=== PATIENT | female | born 1955 | race Caucasian/White ===

== ENCOUNTER → 2021-06-27 13:24 | Outpatient (RCR) | payer MEDICARE, SELFPAY ==
[2019-12-24 07:50] VITALS: BP 140/88; PULSE 75; O2SAT 97
--- NOTE | 2020-01-24 16:27 | MHC.PT.DC ---
[facility] [place] Office [place] Office [place] Office [address] Nayely Reyes [address] [phone] F: [phone] F: [phone] F: [phone] F: [phone] Physical Therapy Discharge Report Diagnosis: This is a 63 yo female presenting to skilled PT with a script for vertigo. Date of Surgery: NA Date of Evaluation: 12/24/19 Date of Discharge: 01/24/20 Treatments to Date: 1 Cancellations to Date: 0 No Shows to Date: 0 Discharge Status: Achieved Goals Improved Function Discharge Summary: This is a 63 yo female presenting to skilled PT with a script for vertigo. Her symptoms began about a week ago. Symptoms are described as swirling. Her symptoms last for a few seconds. She has had vertigo twice before in the past and had PT which was helpful and resolved the symptoms. She has attempted exercises at home recently that she tried to remember from the past PT and they helped a little but symptoms are still present. Examination demonstrated (+) for dizziness and nystagmus for BPPV with R hallpike. I held balance testing and assessment of the other canals to prevent increased symptoms at the moment. She would benefit from reassessment of PT. Educated patient on causes of dizziness, balance systems and vestibular anatomy with radiocommunications technician. She is a good candidate for skilled PT 2x/wk for 5wks however patient called and felt better with single tx. Kept chart open for 30 days and then DC. Electronically signed by: Sobeida Rich PT Please sign and return to therapist. Thank you for your referral.
== END | disposition home or self-care (01) ==
LOC: HO.PTCHIC 12-24 07:48
PROVIDERS: PCP Internal Medicine; Visit Provider Otolaryngology
DX: R42 Dizziness and giddiness (principal)
CPT/HCPCS: 97161; 97530

== ENCOUNTER 2024-07-16 08:54 | Outpatient (AMB) | payer MEDICARE, OTHER, SELFPAY ==
--- OUTSIDE RECORDS SUMMARY | 2024-07-16 08:58 | XMS_ITS | Patient Health Record ---
Author Organization [facility] Address [address] [place] [id number] Care Team Providers Care Audience Development Manager Name Role Phone FERNANDO JOYA Primary Care Provider [phone] AIMEE MCCANN Unavailable [phone] Allergies No Known Allergies Results Component Value Reference Range Notes MR CERVICAL SPINE WO CONTRAS T Reviewed date:07/09/2024 10:18:25 AM Interpretation: Performing Lab: Notes/Report: Note See Note [facility], a member of [employer] Patient Name: YOU MARMOLEJO Date of : 1955 Reason for Exam: NECK PAIN CERVICALGIA Exam Date: 07/02/2024 [id number] EST Report Status: Final Ordering Provider: AIMEE MCCANN PCP: FERNANDO JOYA PROCEDURE: MRI of th e cervical spine without intravenous contrast. TECHNIQUE: Sagittal and axial multisequence MRI of the cervical spine without intravenous contrast administration. HISTORY: NECK PAIN CERVICALGIA COMPARISON: 05/17/2020. FINDINGS: Visualized portions of the brain are normal. There is a moderate mucous retention cyst along the floor of the left maxillary antrum. There are 2 right thyroid nodules; the thyroid could be better evaluated with ultrasound. Paraspinous soft tissues are otherwise unremarkable. Anterior fusion hardware C5-C7. No suspicious marrow infiltrative lesion. The cervical cord is normal in caliber and signal. Cervical disc levels: C2-3: Mild endplate irregularity. Minimal bilateral uncovertebral spurring. Severe left and moderate right facet arthropathy. Mild posterior ligamentous hypertrophy. No significant spinal or foraminal stenosis. C3-4: Mild endplate irregularity. Small anterior endplate osteophytes. Small bilateral uncovertebral spurs and a small symmetric disc bulge. Moderate bilateral facet arthropathy. No significant spinal stenosis. Mild left foraminal stenosis. C4-5: Mild endplate irregularity. Small anterior endplate osteophytes. Small left and moderate right uncovertebral spurs and a small symmetric disc osteophyte complex. Moderate right greater than left facet arthropathy. No significant spinal stenosis. Severe right and mild left foraminal stenosis. C5-6: Fusion level. Small bilateral uncovertebral spurs. Mild degenerative irregularity of the facet joints. No spinal stenosis. Mild bilateral foraminal stenosis. C6-7: Fusion level. Small bilateral uncovertebral spurs and a small irregular symmetric disc osteophyte complex which slightly indents the cord. Mild degenerative irregularity of the facet joints. No significant spinal stenosis. Mild left and moderate-severe right foraminal stenosis. C7-T1: Mild endplate irregularity. Mild-moderate left and mild right facet arthropathy. No significant spinal or foraminal stenosis. IMPRESSION: 1. C5-C7 anterior fusion. 2. Multilevel degenerative changes as detailed above. -------- FINAL REPOR T -------- Dictated By: Israel Aguiar Dictated Date: 07/02/2024 10:08 ET Assigned Physician: Israel Sanchez Reviewed and Electronically Signed By: Israel Sanchez Signed Date: 025 10:14 ET Workstation ID: [id number] Transcribed By: Self Edit Transcribed Date: 07/02/2024 10:08 ET URINALYSIS WITH REFLEX MICRO SCOPIC Reviewed date:06/17/2024 12:33:23 PM Interpretation: Performing Lab: Notes/Report: Specific [place] Urine 1.019 1.003-1.030 pH, Urine 5.5 5.0-8.0 pH Leukocytes, Urine Negative Negative Nitrite, Urine Negative Negative Protein, Urine Negative <=Trace mg/dL Glucose, Urine Negative Negative mg/dL Ketones, Urine Trace Negative mg/dL Urobilinogen, Urine 0.2 0.2-1.0 mg/dL Bilirubin, Urine Negative Negative Blood, Urine Negative Negative HEMOGLOBIN A1C Reviewed date:06/22/2024 08:55:44 AM Interpretation: Performing Lab: Notes/Report: Hemoglobin A1C 4.7 <6.5 % Mean Bld Glu Estim. 88 COMPREHENSIVE METABOLIC PANE L Reviewed date:06/17/2024 12:33:23 PM Interpretation: Performing Lab: Notes/Report: Sodium 140 133-145 mmol/L Potassium 3.4 3.5-5.5 mmol/L Chloride 105 96-110 mmol/L CO2 30 21-32 mmol/L Anion Gap 5 3-11 Glucose 83 70-100 mg/dL BUN 8 5-25 mg/dL Creatinine 0.80 0.50-1.10 mg/dL eGFR 80 >=60 mL/min/1.73m2 Calculati on based on the Chronic Kidney Disease Epidemiology Collaboration (CKD-EPI) equation refit without adjustment for race. BUN/Creatinine Ratio 10.0 Calcium 8.6 8.5-10.5 mg/dL AST (SGOT) 10 10-42 unit/L ALT (SGPT) 12 10-60 unit/L Alkaline Phosphatase 41 42-121 unit/L Total Protein 6.4 6.0-8.0 g/dL Albumin 3.7 3.2-5.0 g/dL Total Bilirubin 0.4 0.0-1.4 mg/dL THYROID STIMULATING HORMONE Reviewed date:06/22/2024 08:55:44 AM Interpretation: Performing Lab: Notes/Report: TSH 3.46 0.40-4.00 mcIU/mL VITAMIN D 25 HYDROXY Reviewed date:06/22/2024 08:55:44 AM Interpretation: Performing Lab: Notes/Report: Vit D, 25-Hydroxy 30.1 30.0-80.0 ng/mL LIPID PANEL WITH REFLEX TO D IRECT LDL Reviewed date:06/17/2024 12:33:23 PM Interpretation: Performing Lab: Notes/Report: Cholesterol 215 0-200 mg/dL Triglycerides 96 0-150 mg/dL HDL 97 >=40 mg/dL LDL Calculated 99 0-100 mg/dL VLDL Cholesterol Ty 19.2 Non HDL Chol. (LDL+VLDL) 118 <145 mg/dL Chol/HDL Ratio 2.2 0.0-4.4 CBC WITH AUTO DIFFERENTIAL Reviewed date:06/17/2024 12:33:23 PM Interpretation: Performing Lab: Notes/Report: WBC 4.7 4.8-10.8 K/mcL RBC 3.90 3.80-4.80 M/mcL Hemoglobin 12.4 11.5-16.0 g/dL Hematocrit 38.2 35.0-47.0 % MCV 99.2 79.0-98.0 FL MCH 32.2 27.0-32.0 pcg MCHC 32.5 32.0-37.0 g/dL RDW 13.1 11.0-15.0 % Platelets 199 130-400 K/mcL MPV 10.4 7.0-11.0 FL NRBC 0.0 <1.0 % NRBC Absolute 0.00 <0.10 K/mcL Neutrophils Relative 51.3 Lymphocytes Relative 32.8 Monocytes Relative 13.2 Eosinophils Relative 1.9 Basophils Relative 0.6 Immature Granulocytes Relative 0.2 Neutrophils Absolute 2.40 1.50-7.00 K/mcL Lymphocytes Absolute 1.54 1.00-5.00 K/mcL Monocytes Absolute 0.62 0.20-1.00 K/mcL Eosinophils Absolute 0.09 0.00-0.50 K/mcL Basophils Absolute 0.03 0.00-0.20 K/mcL Immature Granulocytes Absolute 0.01 0.00-0.03 K/mcL Reason For Referral Diagnosis 1 Cervicalgia (M54.2) Referral Organization [facility] [address] Referring Provider First Name AIMEE Referring Provider Last Name KAROErvin Referring Provider Speciality Internal M edicine Referred Provider Specialty Neurosurgery General Notes faxed to Dr. connor office at fax # [phone] Referral Priority Routine Medications Medication SIG (Take, Route, Frequency, Duration) Notes Start Date End Date Status Zepbound 5 MG/0.5ML 5mg Subcutaneous once a week for 30 days 04/21/2024 Active Ondansetron 4 MG DISSOLVE ONE TABLET ON TONGUE TWICE A DAY NEEDED FOR NAUSEA AND VOMITING for 15 Active Estradiol 1 MG 3 tablet Orally Once a day for 30 day(s) Active oxyCODONE HCl 5 MG 1 tablet as needed Orally daily for 30 days Partial fill upon patient request 06/21/2024 Active Zepbound 5 MG/0.5ML 0.5 mL Subcutaneous once a week for 30 days 04/23/2024 Active sulfaSALAzine 500 MG 1 tablet Orally every 6 hrs for 30 day(s) Active Mounjaro 2.5 MG/0.5ML 2.5mg Subcutaneous weekly for 30 days Not-Taking Nystatin 747427 UNIT 1 tablet Orally every 8 hrs for 10 day(s) Active Mounjaro 5 MG/0.5ML INJECT 5MG (0.5ML) UNDER THE SKIN ONCE WEEKLY for 28 Not-Taking FLUoxetine HCl 20 MG 1 tablet Orally Once a day for 90 days Active Hydroxychloroquine Sulfate 200 MG 1 tablet with food or milk Orally Once a day for 10 day(s) Active FLUoxetine HCl 40 MG 1 capsule Orally Once a day for 90 days 12/19/2023 Active Folic Acid 1 MG TAKE ONE TABLET BY MOUTH EVERY DAY for 90 Active LORazepam 0.5 MG 1 tablet, prn breakthrough anxiety Orally twice a day for 15 days 06/24/2024 Active Immunizations Vaccine Route Administration Date Status Comme nts Influenza, high dose seasonal IM Intramuscular 11/22/2018 Administered Social History Tobacco Use: Social History Observation Description Date Details (start date - stop date) Former Smoker NA - NA Tobacco Use/Smoking Question Answer Notes Are you a former smoker Section Notes: Drinks about 2 drinks 3 time s per week Drinks about 2 drinks 3 time s per week Drinks about 2 drinks 3 time s per week Drinks about 2 drinks 3 time s per week Drinks about 2 drinks 3 time s per week Drinks about 2 drinks 3 time s per week Drinks about 2 drinks 3 time s per week Drinks about 2 drinks 3 time s per week Drinks about 2 drinks 3 time s per week Drinks about 2 drinks 3 time s per week Drinks about 2 drinks 3 time s per week Drinks about 2 drinks 3 time s per week Drinks about 2 drinks 3 time s per week Drinks about 2 drinks 3 time s per week Drinks about 2 drinks 3 time s per week Problems Problem Type SNOMED Code ICD Code Onset Dates Problem Status W/U Status Risk Notes Problem Moderate recurrent major depression (76877445) Major depressive disorder, recurrent, moderate (F33.1) Active confirmed Problem Chronic pain syndrome (949493409) Chronic pain syndrome (G89.4) Active confirmed Problem Rheumatoid arthritis (74847957) Rheumatoid arthritis without rheumatoid factor, vertebrae (M06.08) Active confirmed Problem Osteoarthritis (239408151) Unspecified osteoarthritis, unspecified site (M19.90) Active confirmed Problem 14475187 Cervicalgia (M54.2) Active confirmed Problem Lipid screening (979999618) Encounter for screening for lipoid disorders (Z13.220) Active confirmed Problem Hyperlipidaemia (46296939) Hyperlipidemia, unspecified hyperlipidemia type (E78.5) Active confirmed Problem Adult health examination (353833839) Adult general medical exam (Z00.00) Active confirmed Problem 297735996 Abnormal mammogram (R92.8) Active confirmed Problem Hypothyroidism (44883812) Hypothyroidism, unspecified type (E03.9) Active confirmed Problem Vitamin D deficiency (27692477) Vitamin D deficiency (E55.9) Active confirmed Problem Diabetes mellitus screening (681605931) Diabetes mellitus screening (Z13.1) Active confirmed Problem 741963015 Obesity (BMI 30-39.9) (E66.9) Active confirmed Problem 920129630 BMI 33.0-33.9,adult (Z68.33) Active confirmed Problem 79245226223804540 Left breast ma ss (N63.20) Active confirmed Problem Overweight (659983465) Overweight (BMI 25.0-29.9) (E66.3) Active confirmed Problem Avitaminosis D (55613312) Avitaminosis D (E55.9) Active confirmed Problem Rheumatoid arthritis (16882755) 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) Active confirmed Problem Endocrine/metabolic screening (452748029) Encounter for screening for endocrine disorder (Z13.29) Active confirmed Problem 950687063 Cervical spine pain (M54.2) Active confirmed Vital Signs Heart Rate 68 /min 06/24/2024 Oximetry 97 % 06/24/2024 Blood pressure diastolic 88 mm Hg 06/24/2024 Height 65 in 06/24/2024 Blood pressure systolic 132 mm Hg 06/24/2024 Weight 153 lbs 06/24/2024 BMI 25.46 kg/m2 06/24/2024 Encounters Encounter Location Date Provider Diagnosis [facility] [address] [address] 09/11/2023 AIMEE MCCANN Annual physical exam Z00.00 ; Encounter for screening for other disorder Z13.89 ; Encounter for screening for depression Z13.31 ; Chronic pain syndrome G89.4 ; Rheumatoid arthritis without rheumatoid factor, vertebrae M06.08 ; Major depressive disorder, recurrent, moderate F33.1 ; Seronegative arthropathy of multiple sites M06.09 ; Overweight (BMI 25.0-29.9) E66.3 and BMI 26.0-26.9,adult Z68.26 [facility] [address] [facility] [address] [place], [place] 12/19/2023 AIMEE BORHOT Chronic pain syndrom e G89.4 ; Rheumatoid arthritis without rheumatoid factor, vertebrae M06.08 ; Major depressive disorder, recurrent, moderate F33.1 ; Seronegative arthropathy of multiple sites M06.09 ; Overweight (BMI 25.0-29.9) E66.3 and BMI 26.0-26.9,adult Z68.26 [facility] [address] 03/26/2024 AIMEE BORHOT Chronic pain syndrom e G89.4 ; Rheumatoid arthritis without rheumatoid factor, vertebrae M06.08 ; Major depressive disorder, recurrent, moderate F33.1 ; Hyperlipidemia, unspecified hyperlipidemia type E78.5 and Seronegative arthropathy of multiple sites M06.09 [facility] [address] 06/24/2024 AIMEE BORHOT Chronic pain syndrom e G89.4 ; Rheumatoid arthritis without rheumatoid factor, vertebrae M06.08 ; Major depressive disorder, recurrent, moderate F33.1 ; Hyperlipidemia, unspecified hyperlipidemia type E78.5 ; Seronegative arthropathy of multiple sites M06.09 and Cervicalgia M54.2 [facility] [address] 08/11/2023 AIMEE BORHOT Chronic pain syndrom e G89.4 [facility] [address] 09/04/2023 AIMEE BORHOT Chronic pain syndrom e G89.4 [facility] [address] 09/09/2023 AIMEE BORHOT Chronic pain syndrom e G89.4 and Chronic pain syndrome G89.4 [facility] [address] 10/09/2023 AIMEE BORHOT Chronic pain syndrom e G89.4 [facility] [address] 10/31/2023 AIMEE BORHOT [facility] [address] 11/10/2023 AIMEE BORHOT Chronic pain syndrom e G89.4 [facility] [address] [facility] [address] [address] 12/09/2023 AIMEE BORHOT Chronic pain syndrom e G89.4 [facility] [address] [address] 01/08/2024 AIMEE BORHOT Chronic pain syndrom e G89.4 [facility] [address] [address] 01/16/2024 TALAL JOYA [facility] [address] 01/22/2024 AIMEE BORHOT Chronic pain syndrom e G89.4 [facility] [address] 02/16/2024 AIMEE BORHOT Chronic pain syndrom e G89.4 [facility] [address] 03/17/2024 AIMEE BORHOT Chronic pain syndrom e G89.4 [facility] [address] 03/17/[address] [facility] [address] [place] [address] 03/30/2024 TALAL JOYA [facility] [address] [place], [place] 04/09/2024 TALAL JOYA [facility] [address] 04/13/2024 AIMEE BORHOT [facility] [address] [place] [address] 04/20/2024 AIMEE BORHOT Chronic pain syndrom e G89.[address] [facility] [address] [place] [address] 04/21/2024 AIMEE BORHOT [facility] [address] [place] [address] 04/23/2024 AIMEE BORHOT [facility] [address] [address] 04/26/2024 AIMEE BORHOT [facility] [address] [address] 05/21/2024 AIMEE BORHOT Chronic pain syndrom e G89.4 [facility] [address] [facility] [address] [place] [address] 06/08/2024 AIMEE MCCANN [facility] [address] [facility] [address] [place] [address] 06/10/2024 AIMEE MCCANN [facility] [address] [facility] [address] [place] [address] 06/21/2024 AIMEE MCCANN Chronic pain syndrom e G89.4 [facility] [address] [facility] [address] [place] [address] 06/24/2024 FERNANDO JOYA [facility] [address] [place] [address] 07/02/2024 AIMEE MCCANN [facility] [address] [place] [address] 07/05/2024 AIMEE MCCANN Assessments Encounter Date Diagnosis (ICD Code) Assessment Notes Treatment Notes Treatment Clinical Notes Section Notes 08/11/2023 Chronic pain syndrome (ICD-10 - G89.4) 09/04/2023 Chronic pain syndrome (ICD-10 - G89.4) 09/09/2023 Chronic pain syndrome (ICD-10 - G89.4) 09/09/2023 Chronic pain syndrome (ICD-10 - G89.4) 09/11/2023 Encounter for screening for other disorder (ICD-10 - Z13.89) Acute Concerns/Problem List: 09/11/2023 [facility] reviewed. 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 at 550 bucks per month or Contrave Of note, some information is being carried forward from prior records for informational purposes only and is being cited so that efficiency, safety and quality of the patient's care is not compromised This note was prepared using voice recognition software and direct typing Please excuse inadvertent market research coordinator or typing errors, or uncorrected word substitutions Although every attempt has been made by the provider to proofread this document, occasional misspellings and typographical errors may still be present Due to the previous pandemic, and the use of personal protective equipment (PPE) This may decrease voice recognition accuracy Inadvertent market research coordinator errors may occur 09/11/2023 Annual physical exam (ICD-10 - Z00.00) Acute Concerns/Problem List: 09/11/2023 [facility] reviewed. 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 at 550 bucks per month or Contrave Of note, some information is being carried forward from prior records for informational purposes only and is being cited so that efficiency, safety and quality of the patient's care is not compromised This note was prepared using voice recognition software and direct typing Please excuse inadvertent market research coordinator or typing errors, or uncorrected word substitutions Although every attempt has been made by the provider to proofread this document, occasional misspellings and typographical errors may still be present Due to the previous pandemic, and the use of personal protective equipment (PPE) This may decrease voice recognition accuracy Inadvertent market research coordinator errors may occur 10/09/2023 Chronic pain syndrome (ICD-10 - G89.4) 11/10/2023 Chronic pain syndrome (ICD-10 - G89.4) 12/09/2023 Chronic pain syndrome (ICD-10 - G89.4) 12/19/2023 Chronic pain syndrome (ICD-10 - G89.4) Acute Concerns/Problem List: 12/19/2023 _update labs Thriving on dual incretin therapy I have suggested increasing her fluoxetine from 20 to 40 mg I will also add on a low-dose anxiolytic To help her in grieving process Of note, some information is being carried forward from prior records for informational purposes only and is being cited so that efficiency, safety and quality of the patient's care is not compromised This note was prepared using voice recognition software and direct typing Please excuse inadvertent market research coordinator or typing errors, or uncorrected word substitutions Although every attempt has been made by the provider to proofread this document, occasional misspellings and typographical errors may still be present Due to the previous pandemic, and the use of personal protective equipment (PPE) This may decrease voice recognition accuracy Inadvertent market research coordinator errors may occur 01/08/2024 Chronic pain syndrome (ICD-10 - G89.4) 01/22/2024 Chronic pain syndrome (ICD-10 - G89.4) 02/16/2024 Chronic pain syndrome (ICD-10 - G89.4) 03/17/2024 Chronic pain syndrome (ICD-10 - G89.4) 03/26/2024 Chronic pain syndrome (ICD-10 - G89.4) Update labs please Continue fluoxetine 40 mg Continue lorazepam as needed Will see her back in 3 months Of note, some information is being carried forward from prior records for informational purposes only and is being cited so that efficiency, safety and quality of the patient's care is not compromised This note was prepared using voice recognition software and direct typing Please excuse inadvertent market research coordinator or typing errors, or uncorrected word substitutions Although every attempt has been made by the provider to proofread this document, occasional misspellings and typographical errors may still be present Due to the previous pandemic, and the use of personal protective equipment (PPE) This may decrease voice recognition accuracy Inadvertent market research coordinator errors may occur 03/26/2024 Rheumatoid arthritis without rheumatoid factor, vertebrae (ICD-10 - M06.08) Update labs please Continue fluoxetine 40 mg Continue lorazepam as needed Will see her back in 3 months Of note, some information is being carried forward from prior records for informational purposes only and is being cited so that efficiency, safety and quality of the patient's care is not compromised This note was prepared using voice recognition software and direct typing Please excuse inadvertent market research coordinator or typing errors, or uncorrected word substitutions Although every attempt has been made by the provider to proofread this document, occasional misspellings and typographical errors may still be present Due to the previous pandemic, and the use of personal protective equipment (PPE) This may decrease voice recognition accuracy Inadvertent market research coordinator errors may occur 04/20/2024 Chronic pain syndrome (ICD-10 - G89.4) 05/21/2024 Chronic pain syndrome (ICD-10 - G89.4) 06/21/2024 Chronic pain syndrome (ICD-10 - G89.4) 06/24/2024 Chronic pain syndrome (ICD-10 - G89.4) Acute Concerns/Problem List: 06/24/2024 Labs reviewed MRI cervical spine without, To follow-up with neurosurgery at [facility], Dr. Guthrie She needs a weight management follow-up visit and body composition scan we will schedule this Continue fluoxetine 40 mg Continue lorazepam as needed Of note, some information is being carried forward from prior records for informational purposes only and is being cited so that efficiency, safety and quality of the patient's care is not compromised This note was prepared using voice recognition software and direct typing Please excuse inadvertent market research coordinator or typing errors, or uncorrected word substitutions Although every attempt has been made by the provider to proofread this document, occasional misspellings and typographical errors may still be present Due to the previous pandemic, and the use of personal protective equipment (PPE) This may decrease voice recognition accuracy Inadvertent market research coordinator errors may occur 06/24/2024 Rheumatoid arthritis without rheumatoid factor, vertebrae (ICD-10 - M06.08) Acute Concerns/Problem List: 06/24/2024 Labs reviewed MRI cervical spine without, To follow-up with neurosurgery at Dr. Cleveland Baca She needs a weight management follow-up visit and body composition scan we will schedule this Continue fluoxetine 40 mg Continue lorazepam as needed Of note, some information is being carried forward from prior records for informational purposes only and is being cited so that efficiency, safety and quality of the patient's care is not compromised This note was prepared using voice recognition software and direct typing Please excuse inadvertent market research coordinator or typing errors, or uncorrected word substitutions Although every attempt has been made by the provider to proofread this document, occasional misspellings and typographical errors may still be present Due to the previous pandemic, and the use of personal protective equipment (PPE) This may decrease voice recognition accuracy Inadvertent market research coordinator errors may occur 06/24/2024 Major depressive disorder, recurrent, moderate (ICD-10 - F33.1) Acute Concerns/Problem List: 06/24/2024 Labs reviewed MRI cervical spine without, To follow-up with neurosurgery at Dr. Cleveland Baca She needs a weight management follow-up visit and body composition scan we will schedule this Continue fluoxetine 40 mg Continue lorazepam as needed Of note, some information is being carried forward from prior records for informational purposes only and is being cited so that efficiency, safety and quality of the patient's care is not compromised This note was prepared using voice recognition software and direct typing Please excuse inadvertent market research coordinator or typing errors, or uncorrected word substitutions Although every attempt has been made by the provider to proofread this document, occasional misspellings and typographical errors may still be present Due to the previous pandemic, and the use of personal protective equipment (PPE) This may decrease voice recognition accuracy Inadvertent market research coordinator errors may occur 03/26/2024 Major depressive disorder, recurrent, moderate (ICD-10 - F33.1) Update labs please Continue fluoxetine 40 mg Continue lorazepam as needed Will see her back in 3 months Of note, some information is being carried forward from prior records for informational purposes only and is being cited so that efficiency, safety and quality of the patient's care is not compromised This note was prepared using voice recognition software and direct typing Please excuse inadvertent market research coordinator or typing errors, or uncorrected word substitutions Although every attempt has been made by the provider to proofread this document, occasional misspellings and typographical errors may still be present Due to the previous pandemic, and the use of personal protective equipment (PPE) This may decrease voice recognition accuracy Inadvertent market research coordinator errors may occur 12/19/2023 Rheumatoid arthritis without rheumatoid factor, vertebrae (ICD-10 - M06.08) Acute Concerns/Problem List: 12/19/2023 _update labs Thriving on dual incretin therapy I have suggested increasing her fluoxetine from 20 to 40 mg I will also add on a low-dose anxiolytic To help her in grieving process Of note, some information is being carried forward from prior records for informational purposes only and is being cited so that efficiency, safety and quality of the patient's care is not compromised This note was prepared using voice recognition software and direct typing Please excuse inadvertent market research coordinator or typing errors, or uncorrected word substitutions Although every attempt has been made by the provider to proofread this document, occasional misspellings and typographical errors may still be present Due to the previous pandemic, and the use of personal protective equipment (PPE) This may decrease voice recognition accuracy Inadvertent market research coordinator errors may occur 09/11/2023 Encounter for screening for depression (ICD-10 - Z13.31) Acute Concerns/Problem List: 09/11/2023 [facility] reviewed. 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 at 550 bucks per month or Contrave Of note, some information is being carried forward from prior records for informational purposes only and is being cited so that efficiency, safety and quality of the patient's care is not compromised This note was prepared using voice recognition software and direct typing Please excuse inadvertent market research coordinator or typing errors, or uncorrected word substitutions Although every attempt has been made by the provider to proofread this document, occasional misspellings and typographical errors may still be present Due to the previous pandemic, and the use of personal protective equipment (PPE) This may decrease voice recognition accuracy Inadvertent market research coordinator errors may occur 12/19/2023 Major depressive disorder, recurrent, moderate (ICD-10 - F33.1) Acute Concerns/Problem List: 12/19/2023 _update labs Thriving on dual incretin therapy I have suggested increasing her fluoxetine from 20 to 40 mg I will also add on a low-dose anxiolytic To help her in grieving process Of note, some information is being carried forward from prior records for informational purposes only and is being cited so that efficiency, safety and quality of the patient's care is not compromised This note was prepared using voice recognition software and direct typing Please excuse inadvertent market research coordinator or typing errors, or uncorrected word substitutions Although every attempt has been made by the provider to proofread this document, occasional misspellings and typographical errors may still be present Due to the previous pandemic, and the use of personal protective equipment (PPE) This may decrease voice recognition accuracy Inadvertent market research coordinator errors may occur 09/11/2023 Chronic pain syndrome (ICD-10 - G89.4) Acute Concerns/Problem List: 09/11/2023 [facility] reviewed. 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 at 550 bucks per month or Contrave Of note, some information is being carried forward from prior records for informational purposes only and is being cited so that efficiency, safety and quality of the patient's care is not compromised This note was prepared using voice recognition software and direct typing Please excuse inadvertent market research coordinator or typing errors, or uncorrected word substitutions Although every attempt has been made by the provider to proofread this document, occasional misspellings and typographical errors may still be present Due to the previous pandemic, and the use of personal protective equipment (PPE) This may decrease voice recognition accuracy Inadvertent market research coordinator errors may occur 03/26/2024 Hyperlipidemia, unspecified hyperlipidemia type (ICD-10 - E78.5) Update labs please Continue fluoxetine 40 mg Continue lorazepam as needed Will see her back in 3 months Of note, some information is being carried forward from prior records for informational purposes only and is being cited so that efficiency, safety and quality of the patient's care is not compromised This note was prepared using voice recognition software and direct typing Please excuse inadvertent market research coordinator or typing errors, or uncorrected word substitutions Although every attempt has been made by the provider to proofread this document, occasional misspellings and typographical errors may still be present Due to the previous pandemic, and the use of personal protective equipment (PPE) This may decrease voice recognition accuracy Inadvertent market research coordinator errors may occur 06/24/2024 Hyperlipidemia, unspecified hyperlipidemia type (ICD-10 - E78.5) Acute Concerns/Problem List: 06/24/2024 Labs reviewed MRI cervical spine without, To follow-up with neurosurgery at Dr. Cleveland Baca She needs a weight management follow-up visit and body composition scan we will schedule this Continue fluoxetine 40 mg Continue lorazepam as needed Of note, some information is being carried forward from prior records for informational purposes only and is being cited so that efficiency, safety and quality of the patient's care is not compromised This note was prepared using voice recognition software and direct typing Please excuse inadvertent market research coordinator or typing errors, or uncorrected word substitutions Although every attempt has been made by the provider to proofread this document, occasional misspellings and typographical errors may still be present Due to the previous pandemic, and the use of personal protective equipment (PPE) This may decrease voice recognition accuracy Inadvertent market research coordinator errors may occur 06/24/2024 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 Cleveland Baca She needs a weight management follow-up visit and body composition scan we will schedule this Continue fluoxetine 40 mg Continue lorazepam as needed Of note, some information is being carried forward from prior records for informational purposes only and is being cited so that efficiency, safety and quality of the patient's care is not compromised This note was prepared using voice recognition software and direct typing Please excuse inadvertent market research coordinator or typing errors, or uncorrected word substitutions Although every attempt has been made by the provider to proofread this document, occasional misspellings and typographical errors may still be present Due to the previous pandemic, and the use of personal protective equipment (PPE) This may decrease voice recognition accuracy Inadvertent market research coordinator errors may occur 12/19/2023 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) Acute Concerns/Problem List: 12/19/2023 _update labs Thriving on dual incretin therapy I have suggested increasing her fluoxetine from 20 to 40 mg I will also add on a low-dose anxiolytic To help her in grieving process Of note, some information is being carried forward from prior records for informational purposes only and is being cited so that efficiency, safety and quality of the patient's care is not compromised This note was prepared using voice recognition software and direct typing Please excuse inadvertent market research coordinator or typing errors, or uncorrected word substitutions Although every attempt has been made by the provider to proofread this document, occasional misspellings and typographical errors may still be present Due to the previous pandemic, and the use of personal protective equipment (PPE) This may decrease voice recognition accuracy Inadvertent market research coordinator errors may occur 03/26/2024 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) Update labs please Continue fluoxetine 40 mg Continue lorazepam as needed Will see her back in 3 months Of note, some information is being carried forward from prior records for informational purposes only and is being cited so that efficiency, safety and quality of the patient's care is not compromised This note was prepared using voice recognition software and direct typing Please excuse inadvertent market research coordinator or typing errors, or uncorrected word substitutions Although every attempt has been made by the provider to proofread this document, occasional misspellings and typographical errors may still be present Due to the previous pandemic, and the use of personal protective equipment (PPE) This may decrease voice recognition accuracy Inadvertent market research coordinator errors may occur 09/11/2023 Rheumatoid arthritis without rheumatoid factor, vertebrae (ICD-10 - M06.08) Acute Concerns/Problem List: 09/11/2023 [facility] reviewed. 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 at 550 bucks per month or Contrave Of note, some information is being carried forward from prior records for informational purposes only and is being cited so that efficiency, safety and quality of the patient's care is not compromised This note was prepared using voice recognition software and direct typing Please excuse inadvertent market research coordinator or typing errors, or uncorrected word substitutions Although every attempt has been made by the provider to proofread this document, occasional misspellings and typographical errors may still be present Due to the previous pandemic, and the use of personal protective equipment (PPE) This may decrease voice recognition accuracy Inadvertent market research coordinator errors may occur 09/11/2023 Major depressive disorder, recurrent, moderate (ICD-10 - F33.1) Acute Concerns/Problem List: 09/11/2023 [facility] reviewed. 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 at 550 bucks per month or Contrave Of note, some information is being carried forward from prior records for informational purposes only and is being cited so that efficiency, safety and quality of the patient's care is not compromised This note was prepared using voice recognition software and direct typing Please excuse inadvertent market research coordinator or typing errors, or uncorrected word substitutions Although every attempt has been made by the provider to proofread this document, occasional misspellings and typographical errors may still be present Due to the previous pandemic, and the use of personal protective equipment (PPE) This may decrease voice recognition accuracy Inadvertent market research coordinator errors may occur 06/24/2024 Cervicalgia (ICD-10 - M54.2) Acute Concerns/Problem List: 06/24/2024 Labs reviewed MRI cervical spine without, To follow-up with neurosurgery at [facility], Dr. Guthrie She needs a weight management follow-up visit and body composition scan we will schedule this Continue fluoxetine 40 mg Continue lorazepam as needed Of note, some information is being carried forward from prior records for informational purposes only and is being cited so that efficiency, safety and quality of the patient's care is not compromised This note was prepared using voice recognition software and direct typing Please excuse inadvertent market research coordinator or typing errors, or uncorrected word substitutions Although every attempt has been made by the provider to proofread this document, occasional misspellings and typographical errors may still be present Due to the previous pandemic, and the use of personal protective equipment (PPE) This may decrease voice recognition accuracy Inadvertent market research coordinator errors may occur 12/19/2023 Overweight (BMI 25.0-29.9) (ICD-10 - E66.3) Acute Concerns/Problem List: 12/19/2023 _update labs Thriving on dual incretin therapy I have suggested increasing her fluoxetine from 20 to 40 mg I will also add on a low-dose anxiolytic To help her in grieving process Of note, some information is being carried forward from prior records for informational purposes only and is being cited so that efficiency, safety and quality of the patient's care is not compromised This note was prepared using voice recognition software and direct typing Please excuse inadvertent market research coordinator or typing errors, or uncorrected word substitutions Although every attempt has been made by the provider to proofread this document, occasional misspellings and typographical errors may still be present Due to the previous pandemic, and the use of personal protective equipment (PPE) This may decrease voice recognition accuracy Inadvertent market research coordinator errors may occur 09/11/2023 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) Acute Concerns/Problem List: 09/11/2023 [facility] reviewed. 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 at 550 bucks per month or Contrave Of note, some information is being carried forward from prior records for informational purposes only and is being cited so that efficiency, safety and quality of the patient's care is not compromised This note was prepared using voice recognition software and direct typing Please excuse inadvertent market research coordinator or typing errors, or uncorrected word substitutions Although every attempt has been made by the provider to proofread this document, occasional misspellings and typographical errors may still be present Due to the previous pandemic, and the use of personal protective equipment (PPE) This may decrease voice recognition accuracy Inadvertent market research coordinator errors may occur 12/19/2023 BMI 26.0-26.9,adult (ICD-10 - Z68.26) Acute Concerns/Problem List: 12/19/2023 _update labs Thriving on dual incretin therapy I have suggested increasing her fluoxetine from 20 to 40 mg I will also add on a low-dose anxiolytic To help her in grieving process Of note, some information is being carried forward from prior records for informational purposes only and is being cited so that efficiency, safety and quality of the patient's care is not compromised This note was prepared using voice recognition software and direct typing Please excuse inadvertent market research coordinator or typing errors, or uncorrected word substitutions Although every attempt has been made by the provider to proofread this document, occasional misspellings and typographical errors may still be present Due to the previous pandemic, and the use of personal protective equipment (PPE) This may decrease voice recognition accuracy Inadvertent market research coordinator errors may occur 09/11/2023 Overweight (BMI 25.0-29.9) (ICD-10 - E66.3) Acute Concerns/Problem List: 09/11/2023 [facility] reviewed. 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 at 550 bucks per month or Contrave Of note, some information is being carried forward from prior records for informational purposes only and is being cited so that efficiency, safety and quality of the patient's care is not compromised This note was prepared using voice recognition software and direct typing Please excuse inadvertent market research coordinator or typing errors, or uncorrected word substitutions Although every attempt has been made by the provider to proofread this document, occasional misspellings and typographical errors may still be present Due to the previous pandemic, and the use of personal protective equipment (PPE) This may decrease voice recognition accuracy Inadvertent market research coordinator errors may occur 09/11/2023 BMI 26.0-26.9,adult (ICD-10 - Z68.26) Acute Concerns/Problem List: 09/11/2023 [facility] reviewed. 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 at 550 bucks per month or Contrave Of note, some information is being carried forward from prior records for informational purposes only and is being cited so that efficiency, safety and quality of the patient's care is not compromised This note was prepared using voice recognition software and direct typing Please excuse inadvertent market research coordinator or typing errors, or uncorrected word substitutions Although every attempt has been made by the provider to proofread this document, occasional misspellings and typographical errors may still be present Due to the previous pandemic, and the use of personal protective equipment (PPE) This may decrease voice recognition accuracy Inadvertent market research coordinator errors may occur Plan Of Treatment Pending Test Test Name Order Date Hemoglobin A1c 05/29/2018 TSH+Free T4 05/29/2018 Lipid Panel 05/29/2018 Comp. Metabolic Panel (14) 05/29/2018 CBC 05/29/2018 Urinalysis 05/29/2018 MRI : Cervical without Contrast 06/25/19 25 25OH VITAMIN D 04/14/2023 CBC (COMPLETE BLOOD COUNT) 04/14/2023 COMPREHENSIVE METABOLIC PANEL 04/14/2023 HEMOGLOBIN A1C 04/14/2023 LIPID PANEL 04/14/2023 TSH 04/14/2023 URINALYSIS W/REFLEX CULTURE 04/14/2023 XR Hip 2+ Views LT 01/16/2023 LIPID PANEL, STANDARD 12/19/2023 LIPID PANEL, STANDARD 03/26/2024 COMPREHENSIVE METABOLIC PANEL 03/26/2024 COMPREHENSIVE METABOLIC PANEL 12/19/2023 CBC (INCLUDES DIFF/PLT) 12/19/2023 CBC (INCLUDES DIFF/PLT) 03/26/2024 URINALYSIS, COMPLETE 12/19/2023 URINALYSIS, COMPLETE 03/26/2024 HEMOGLOBIN A1c 12/19/2023 HEMOGLOBIN A1c 03/26/2024 TSH 03/26/2024 TSH 12/19/2023 VITAMIN D,25-OH,TOTAL,IA 12/19/2023 VITAMIN D,25-OH,TOTAL,IA 03/26/2024 US Core Biopsy Left 08/22/2020 Future Test Test Name Order Date CBC (COMPLETE BLOOD COUNT) 09/21/2020 COMPREHENSIVE METABOLIC PANEL 09/21/2020 HEMOGLOBIN A1C 09/21/2020 LIPID PANEL 09/21/2020 T3, FREE 09/21/2020 T4, TOTAL 09/21/2020 TSH 09/21/2020 COMPLETE URINALYSIS 09/21/2020 25OH VITAMIN D 06/28/2022 CBC (COMPLETE BLOOD COUNT) WITH DIFF 01/2023 COMPREHENSIVE METABOLIC PANEL 06/28/2022 HEMOGLOBIN A1C 06/28/2022 LIPID PANEL 06/28/2022 TSH WITH REFLEX TO FT4 06/28/2022 URINALYSIS W/REFLEX CULTURE 06/28/2022 Next Appt Details Provider Name:EDYTA HUI , 07/22/2024 08:30:00 AM, [address], [facility] [address], [place], [address], Provider Name:AIMEE MCCANN, 09/29/2024 01:00:00 PM, [address], [address], [place], [address], Insurance Providers Payer Name Payer Address Payer Phone Subscriber Number Group Number Insured Name Patient Relationship to Insured Coverage Start Date Coverage End Date Medicare Part B [address] [place] [address] [id number] IKER MARMOLEJOEN Self - patient is the insured 0 [facility] [address] [place], [place] [id number] JALEELIKEREN Self - patient is the insured 0 Medical (General) History Medical History History ICD Code chronic pain Surgical History Surgery Date(Month/Year) appendectomy hysterectomy knee surgery kidney donor colonoscopy 8 years
[2024-07-16 09:05] VITALS: BMI 23.7
--- NOTE | 2024-07-16 09:05 | A.SPINEOV_ITS ---
Vital Signs 07/16/24 09:05 Height 5 ft 6 in Weight 147 lb BMI 23.7 Intake Visit Reasons: Neck pain Intake Note: Ms. Lenka Li is here today c/o neck pain that radiate to the arms. Clinical Systems Analyst Required: No Allergies No Known Allergies Allergy (Verified 07/16/24 09:06) Physical Exam Vital Signs: BMI result Body Mass Index 23.7 Assessment & Plan Assessment & Plan (1) Neck pain: Code(s): M54.2 - Cervicalgia Category: Medical Plan This is a 68-year-old female known to us from our practice at [facility], status post C5-6, C6-7 ACDF done maybe 4 -5 years ago for neck pain. She had excellent results with the neck pain after surgery, but started to feel some pain maybe 4 or 5 months ago in the left side of her neck radiating up to the back of her head. No symptoms going down her arms. She is a history of osteoarthritis, she is maintained on a number of different anti-inflammatories medications including prednisone, sulfasalazine and another medication called hydroxychloroquine. That generally helps with her symptoms in her wrists, but has not really helped the neck pain. She also takes oxycodone as needed. She will take Tylenol as well if the pain is bad, but it does not really do much. No physical therapy, injections or chiropractic. She underwent an MRI of her cervical spine and this showed degenerative disc disease around the areas of her previous fusion. She came today see us for an evaluation. PMH: She has a history of osteoarthritis, as mentioned above her chart from the [facility] suggest she might also have rheumatoid. History of hysterectomy, anterior cervical fusion, appendectomy, left total knee replacement, left total hip replacement. 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 Social hx: She does not smoke, occasionally uses some marijuana drops and alcohol Medications: Prednisone, hydroxychloroquine, folic acid, fluoxetine, nystatin, estradiol, dxdy-qzi-gvblqwj acid control her, zepbound, which is for weight loss, and she takes multiple vitamins Allergies: None Physical exam: Awake alert oriented no acute distress, strength in the upper extremities and reflexes normal Imaging review: Cervical MRI done at [facility], I did x-rays here today in the office. This shows good evidence of fusion at the implant sites, the hardware is in good position. She has some ppqy-va-xlexnefl degeneration above the fusion at C3-4 and C4-5. I did flexion-extension studies and there is no signs of instability. Impression: 68-year-old female history of previous C5-6, C6-7 anterior cervical fusion done about 5 years ago or so with Dr. Guthrie at [facility] for neck pain with good results. She has had some return of the neck pain and her MRI does show some basic yzwa-pe-xtwitynz level degeneration above the fusion but nothing that looks surgical. 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 Right now she is just going to continue with the current treatments and see how things go. We talked about the options of PT and injections etc. but these things have never really worked for her in the past. She will call us down the road if something changes or gets significantly worse. Thank you for allowing us to care for your patient. The total time spent with this visit with this patient was 45 minutes reviewing history, physical exam, service imaging review, and implementation of treatment plan or further diagnostic testing Edmund Guthrie MD,PhD [facility] Orders: Orders XR cervical spine 4V Today M54.2 - Cervicalgia Coding Level of Care Code New Pt Level 4 (12029) Diagnoses Neck pain M54.2
== END 2024-07-16 10:41 | disposition home or self-care (01) ==
LOC: HO.HNS 08:54
PROVIDERS: PCP Internal Medicine; Visit Provider Physician Assistant
DX: M54.2 Cervicalgia (principal)
CPT/HCPCS: 99204

== ENCOUNTER 2024-07-16 08:54 | Outpatient (REF) | payer MEDICARE, OTHER, SELFPAY ==
--- NOTE | ~2024-07-16 | XR_ITS ---
EXAMINATION: XR CERVICAL SPINE 4-5 VIEWS HISTORY: M54.2 - Cervicalgia COMPARISON: There are no prior studies available for comparison. FINDINGS: AP, and neutral, flexion, and extension lateral views of the cervical spine are submitted. Osseous mineralization is normal. Seven cervical vertebral bodies are identified maintaining normal height and alignment without evidence of fracture or subluxation. The patient is status post anterior cervical disc fusion at C5-6 and C6-7. The fusion hardware is intact. There is moderate degenerative disc disease at the C3-4 and C4-5 levels with disc space narrowing and osteophyte formation. There is no abnormal motion with flexion or extension. There is no prevertebral soft tissue swelling. XR/XR cervical spine 4V IMPRESSION: Status post anterior cervical disc fusion at C5-6 and C6-7. There is no abnormal motion with flexion or extension. Degenerative changes as described. Electronically signed by: Daniel Choi MD 07/19/2024 11:51 AM EDT
== END 2024-07-16 08:55 | disposition home or self-care (01) ==
LOC: HO.HOSX 08:54
PROVIDERS: PCP Internal Medicine; Visit Provider Physician Assistant
DX: M54.2 Cervicalgia (principal)
CPT/HCPCS: 72050; 99202

== ENCOUNTER → 2024-07-16 09:39 | Outpatient (BNV) | payer MEDICARE, OTHER, SELFPAY | PROVIDERS: PCP Internal Medicine; Visit Provider Radiology Diagnostic Radiology | DX: M54.2 Cervicalgia (principal); M43.22 Fusion of spine, cervical region | CPT/HCPCS: 72050 ==